=== PATIENT | male | born 1975 | race Caucasian/White ===

== ENCOUNTER 2018-01-15 13:39 | Emergency (ER) | payer SELFPAY ==
[~2018-01-15] VITALS: Ht 177.8 cm; Wt 107.0 kg
[~2018-01-15 13:39] MED LIST: CLINDAMYCIN HC300 MG PO; HUMULIN 70100 UNIT/1 SQ; KEFLEX500 MG PO; METFORMIN HCL500 MG PO; MULTI-VITAMIN1 EACH PO; NORCO 5-325 TA1 EACH PO
[2018-01-15 14:38] LABS: CLARITY,URINE CLEAR (CLEAR); COLOR,URINE YELLOW (YELLOW)
[2018-01-15 14:39] LABS: BILIRUBIN,URINE NEGATIVE (NEGATIVE); KETONES,URINE TRACE (NEGATIVE); LEUKOCYTE ESTERASE ,URINE NEGATIVE (NEGATIVE); NITRITE,URINE NEGATIVE (NEGATIVE); PROTEIN,URINE DIPSTICK NEGATIVE (NEGATIVE); URINE UROBILINOGEN 1 mg/dL (0.2 - 1)
[2018-01-15 14:47] LABS: AMORPHOUS SEDIMENT,URINE FEW (FEW); BACTERIA,URINE RARE /HPF; EPITHELIAL CELLS,URINE FEW /LPF; MUCUS,URINE FEW (RARE); WBC,URINE (MAN) 0-5 /HPF (0-5)
--- NOTE | 2018-01-15 15:41 | Diagnostic Imaging Report ---
PROCEDURE:X-RAY ABDOMEN - KUB COMPARISON:None. INDICATIONS:BACK PAIN, BLADDER WEAKNESS FOR A FEW DAYS FINDINGS: There is a non-obstructed bowel-gas pattern. Moderate to large colonic stool burden, suggestive of constipation. There are no calcifications projected over the renal shadows, expected course of the ureters or bladder. There are no acute osseous abnormalities. Right upper quadrant surgical clips, likely related to cholecystectomy. The lung bases are clear. CONCLUSION: Unremarkable abdominal radiograph. Dictated by: Zach Ramos M.D. on 01/15/2018 at 15:45 Electronically approved by: Zach Raoms M.D. on 01/15/2018 at 15:45
--- NOTE | 2018-01-15 15:49 | Diagnostic Imaging Report ---
Examination: CT LUMBAR SPINE WITHOUT CONTRAST History: Sharp low back pain with radiation down the legs. Comparison studies: None Technique: Axial images were obtained through the lumbar spine from at L1. Coronal and sagittal reconstructions obtained from the axial data. Intravenous contrast: None Findings: The usual 5 non-rib bearing lumbar vertebral bodies are present. Alignment: Normal lordosis. No scoliosis. Soft tissues: No abnormalities. Paraspinal muscles: No abnormalities. Sacroiliac joints: No degenerative changes. Vertebrae: No fractures, infection or neoplasm. Degenerative changes: L1-L2 through L4-L5: No abnormalities. L5-S1: Grade I anterolisthesis due to bilateral pars defects. Uncovering of a diffuse disc bulge, mild ligamentum flavum thickening results in mild canal stenosis and severe bilateral neural foraminal narrowing. There is impingement of the bilateral exiting L5 nerve roots. IMPRESSION: Bilateral isthmic spondylolisthesis at L5-S1 with severe bilateral neural foraminal narrowing with impingement of the bilateral exiting L5 nerve roots and mild canal stenosis. Signed by: Dr. Mireya Perez M.D. on 01/15/2018 3:46 PM
[2018-01-15 15:51] LABS: BASOPHILS # (AUTO) 0.1 (0.0-0.1); BASOPHILS % 0.3 % (0.0-1.0); EOSINOPHILS # (AUTO) 0.2 (0.0-0.4); EOSINOPHILS % 1.1 % (0.0-6.0); HEMATOCRIT 36.2 % (38.2-49.6); HEMOGLOBIN 12.4 g/dL (14.0-18.0); LYMPHOCYTES % 14.1 % (18.0-39.1); MEAN CORPUSCULAR HEMOGLOBIN 28.4 pg (28-32); MEAN CORPUSCULAR HGB CONC 34.3 g/dL (31-35); MEAN CORPUSCULAR VOLUME 82.8 fL (81-99); MONOCYTES # (AUTO) 1.5 (0.2-0.8); NEUTROPHILS # (AUTO) 10.7 (2.1-6.9); NEUTROPHILS % 73.8 % (38.7-80.0); PLATELET COUNT 490 x10e3/uL (140-360); RED BLOOD COUNT 4.37 x10e6/uL (4.3-5.7); RED CELL DISTRIBUTION WIDTH 12.6 % (11.7-14.4)
[2018-01-15] MEDS ORDERED: HYDROCODONE/APAP 10MG-325MG TAB PO ONE ×2 (16:00→20:00)
[2018-01-15 16:11] LABS: ANION GAP 17.1 mmol/L (8-16); BLOOD UREA NITROGEN 16 mg/dL (7-26); BUN/CREATININE RATIO 17 (6-25); CALCIUM 9.7 mg/dL (8.4-10.2); CARBON DIOXIDE 26 mmol/L (22-29); CHLORIDE 93 mmol/L (98-107); CREATININE, SERUM 0.93 mg/dL (0.72-1.25); EST GLOMERULAR FILTRATION RATE > 60 ML/MIN (60-); GLUCOSE 191 mg/dL (74-118); POTASSIUM 4.1 mmol/L (3.5-5.1); SODIUM 132 mmol/L (136-145)
[2018-01-15 22:04] VITALS: BP 127/83
== END 2018-01-15 22:06 | disposition short-term general hospital (02) ==
LOC: ER 13:39
DX: G83.4 Cauda equina syndrome (principal); I10 Essential (primary) hypertension; E11.9 Type 2 diabetes mellitus without complications; M54.16 Radiculopathy, lumbar region
CPT/HCPCS: 36415; 72131; 74018; 80048; 81001; 85025; 87086; 99284